=== PATIENT | male | born 1955 | race Caucasian/White ===

== ENCOUNTER → 2024-11-23 | Outpatient (CLI) | payer MEDICARE, OTHER, SELFPAY ==
--- NOTE | 2024-11-23 13:18 | MRI_ITS ---
EXAM: PELVIS W/WO CONTRAST 11/23/2024 CLINICAL HISTORY: BIOCHEMICAL RECURRENCE OF PROSTATE CA. Prostatectomy performed December 2023. TECHNIQUE: MRI of the pelvis was performed. Multiplanar and multisequence images were obtained intravenous gadolinium contrast. CONTRAST: 15 mL Clariscan intravenous. COMPARISON: None. FINDINGS: Prostatectomy with no MR evidence of local tumor recurrence. No metastatic pelvic or inguinal adenopathy. Small right and tiny left fat containing inguinal hernias. No marrow lesions identified. MRI/Pelvis W/WO Contrast IMPRESSION: Prostatectomy without MR evidence of recurrent prostate carcinoma. No metastat ic disease identified. Reading Location: [facility]
== END | disposition home or self-care (01) ==
LOC: OPMRI 13:01
PROVIDERS: PCP Family Medicine; Referring Provider Student in an Organized Health Care Education/Training Program; Visit Provider Student in an Organized Health Care Education/Training Program
DX: C61 Malignant neoplasm of prostate (principal); R97.21 Rising PSA following treatment for malignant neoplasm of prostate; Z19.1 Hormone sensitive malignancy status
CPT/HCPCS: 72197; A9575; A4216

== ENCOUNTER 2024-12-06 07:03 | Day surgery (SDC) | payer MEDICARE, OTHER, SELFPAY ==
--- NOTE | 2024-12-02 13:29 | PAT.ANESEVAL ---
Pre-Assessment Diagnosis/Proposed Procedure Planned Operative Procedure(s): (L) Insertion, Vascular Port Anesthesia History Anesthesia History - brush filler hand: Anesthesia History - brush filler hand Hx Hospitalization No 12/02/24 09:39 Any Problems With Anesthesia No 12/02/24 09:39 Cholinesterase deficiency No 12/02/24 09:39 You/Your Family Experience No 12/02/24 09:39 fever (hyperthermia) with Relationship Recent Exposure to Contagious Disease Does patient have nerve No 12/02/24 09:39 stimulator Patient instructed to have device shut off --Does patient have Pacemaker or ICD? When Was Last Pacemaker Check QUESTION #4 FULL TEXT: You/Your Family Experience fever (hyperthermia) with Anesthesia Last Oral Intake Last Oral intake: Last Oral Intake NPO since Meds taken in AM with sips of water? Meds patient instructed to take am of surgery PONV PONV - brush filler hand: PONV - brush filler hand Female No 12/02/24 09:39 HX of Motion Sickness No 12/02/24 09:39 HX of N/V After Surgery No 12/02/24 09:39 Non-Smoker Yes 12/02/24 09:39 Duration of Surgery greater Yes 12/02/24 09:39 than 60 minutes Number of Risk Factors 2 12/02/24 09:39 PONV Score Moderate Risk 12/02/24 09:39 Height & Weight Height & Weight: Anesthesia: Height & Weight Height 5 ft 9 in 12/01/24 08:55 Respiratory Assessment Respiratory Assessment - brush filler hand: Respiratory Tract Infection Hx - brush filler hand Hx Respiratory Tract Infection No 12/02/24 09:39 STOP Sleep Apnea STOP Sleep Apnea - brush filler hand: STOP Sleep Apnea - brush filler hand Hx Hypertension No 12/02/24 09:39 Hx Sleep Apnea No 12/02/24 09:39 CPAP BIPAP Do you snore loudly (louder Yes 12/02/24 09:39 than talking or can be heard Do you often feel tired/ No 12/02/24 09:39 fatigued/ sleepy during daytime? Has anyone observed you stop No 12/02/24 09:39 breathing during sleep? STOP Results Negative 12/02/24 09:39 QUESTION #5 FULL TEXT : Do you snore loudly (louder than talking or can be heard through closed doors)? 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 Specify any problems Hx of Preganancy in last 3 N/A 12/02/24 09:39 Months Nurse Filling Out Transfusion MGRIFFITH 12/02/24 09:39 & Questions: Date: 12/02/24 12/02/24 09:39 Time: 09:41 12/02/24 09:39 Patient unable to answer at this time (ie. confused, unrespo /Reproduction History /Reproductive History - brush filler hand: /Reproductive Hx- brush filler hand Hx Now Gestational Age (in weeks): EDC: Hx Hx Para Hx Section SAB PFSH Medical History (Updated 12/02/24 @ 09:49 by Kathy Cutler) History of Clostridium difficile infection Non-smoker History of echocardiogram History of stress test Cardiology follow-up encounter Encounter for education Metastasis to bone Melanoma Colon polyps Blepharitis CAD (coronary artery disease) BPH (benign prostatic hyperplasia) Prostate cancer Home Medications ?Medication ?Instructions ?Recorded ?Last Taken ?Type aspirin 81 mg tablet,delayed 81 mg PO QDAY 11/02/24 Unknown History release glucosamine sulfate 500 mg tablet 500 mg PO QDAY 11/02/24 Unknown History (Glucosamine) multivitamin 1 tab PO QAM 11/02/24 Unknown History dexamethasone 4 mg tablet 8 mg (2 x 4 mg) PO .COMPLEX #72 12/01/24 Unknown Rx tabs lidocaine-prilocaine 2.5 %-2.5 % 1 applic topical ONCE PRN port 12/01/24 Unknown Rx topical cream access 30 days #30 grams ondansetron 8 mg disintegrating 8 mg PO Q8H PRN nausea and 12/01/24 Unknown Rx tablet vomiting #30 tabs prochlorperazine maleate 10 mg 10 mg PO Q6H PRN nausea and 12/01/24 Unknown Rx tablet vomiting #30 tabs Allergy/AdvReac Type Severity Reaction Status Date / Time atorvastatin (From Lipitor) Allergy Unknown unknown Verified 12/02/24 09:34 Sulfa (Sulfonamide Allergy Unknown unknown Verified 12/02/24 09:34 Antibiotics) Family History Mother CVA (cerebral vascular accident) Father Cancer Surgical History (Updated 12/02/24 @ 09:39 by Kathy Cutler) History of wisdom tooth extraction History of basal cell carcinoma (BCC) excision History of melanoma excision History of prostatectomy Hx of colonoscopy Hx of cataract extraction Hx of prostate biopsy Hx of cardiac catheterization Social History Smoking Status: Never smoker alcohol intake: current alcohol intake frequency: a few times a month Alcohol type: wine substance use type: does not use what type of physical activity do you participate in: walking and yoga frequency: daily Audit: Pertinent Findings Pertinent Findings EKG Perinent findings: Sinus rhythm with no signs of ischemia. 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 September 2023. Consult pertinent findings: Cardiac assessment. 09/29/2023 [facility]. Left heart catheterization 06/22/2023 showed nonobstructive coronary artery disease. Preserved left ventricular function. Medical management only. Recommendation Anesthesia Recommendation Anesthesia recommendation: OPTIMIZED for anesthesia
[2024-12-06] VITALS (9 sets, daily range): BP systolic 92–146; BP diastolic 49–77; PULSE 49–66; RESP 14–16; TEMP 36.3–36.4; O2SAT 93–100; BMI 24.3
[2024-12-06] MEDS: Lactated Ringers 1,000 ML 15 ML IV (07:56)
--- NOTE | 2024-12-06 08:24 | PCM.PRE.AN2 ---
ASA Classification* ASA Classification ASA Classification: 2 Assessment & Plan Anesthesia* Anesthesia Assessment Anesthesia Assessment: Discussed sedation and/or anesthesia options, risks, benefits, and alternatives with patient/parents/legal guardian/POA. Questions invited. The patient/parents/legal guardian/POA seems to understand and agrees to proceed with anesthesia plan. Reviewed the physical assessment, medical history, allergy history and patient home medications list prior to surgery/procedure/anesthetic and documented any changes. Performed airway and anesthesia risk assessments. Anesthesia Type Anesthesia Type: MAC History Source History Obtained from:: Patient and Chart Anesthesia Focused Assessment* Temperature: 97.6 F Pulse Rate: 63 Blood Pressure: 146/77 Respiratory Rate: 16 Pulse Ox: 100 Oxygen Delivery Method: Room Air Airway Assessment Mouth opens: >3 cm Mallampati Score: I Teeth Condition: Caps/Crowns (Patient has a crown. 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 When Was Last Pacemaker Check QUESTION #4 FULL TEXT: You/Your Family Experience fever (hyperthermia) with Anesthesia Last Oral Intake Last Oral intake: Last Oral Intake NPO since 19:00 12/06/24 07:56 Meds taken in AM with sips of No 12/06/24 07:56 water? 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 Female No 12/02/24 09:39 HX of Motion Sickness No 12/02/24 09:39 HX of N/V After Surgery No 12/02/24 09:39 Non-Smoker Yes 12/02/24 09:39 Duration of Surgery greater Yes 12/02/24 09:39 than 60 minutes Number of Risk Factors 2 12/02/24 09:39 PONV Score Moderate Risk 12/02/24 09:39 Height & Weight Height & Weight: Anesthesia: Height & Weight Height 5 ft 9 in 12/06/24 07:56 Weight: 74.9 kg 12/06/24 07:56 Body Mass Index (BMI) 24.3 12/06/24 07:56 Respiratory Assessment Respiratory Assessment - waste collection driver: Respiratory Tract Infection Hx - waste collection driver Hx Respiratory Tract Infection No 12/02/24 09:39 Any additional information?: Yes Hx Respiratory Tract Infection: No History of Anesthesia Respiratory Infection details: Patient does have a slight cough especially at night. STOP Sleep Apnea STOP Sleep Apnea - waste collection driver: STOP Sleep Apnea - waste collection driver Hx Hypertension No 12/02/24 09:39 Hx Sleep Apnea No 12/02/24 09:39 CPAP BIPAP Do you snore loudly (louder Yes 12/02/24 09:39 than talking or can be heard Do you often feel tired/ No 12/02/24 09:39 fatigued/ sleepy during daytime? Has anyone observed you stop No 12/02/24 09:39 breathing during sleep? STOP Results Negative 12/02/24 09:39 QUESTION #5 FULL TEXT : Do you snore loudly (louder than talking or can be heard through closed doors)? 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 Specify any problems Hx of Preganancy in last 3 N/A 12/02/24 09:39 Months Nurse Filling Out Transfusion MGRIFFITH 12/02/24 09:39 & Questions: Date: 12/02/24 12/02/24 09:39 Time: 09:41 12/02/24 09:39 Patient unable to answer at this time (ie. 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: /Reproductive Hx- waste collection driver Hx Now Gestational Age (in weeks): EDC: Hx Hx Para Hx Section SAB Active Medications Active Medications: Current Medications Generic Name Dose Route Start Last Admin Trade Name Freq PRN Reason Stop Dose Admin Lactated Ringer's 1,000 mls @ 15 mls/hr 12/06/24 07:15 12/06/24 07:56 IV 15 mls/hr .Q48H ROB Administration PFSH Medical History History of Clostridium difficile infection Non-smoker History of echocardiogram History of stress test Cardiology follow-up encounter Encounter for education Metastasis to bone Melanoma Colon polyps Blepharitis CAD (coronary artery disease) BPH (benign prostatic hyperplasia) Prostate cancer Home Medications ?Medication ?Instructions ?Recorded ?Last Taken ?Type aspirin 81 mg tablet,delayed 81 mg PO QDAY 11/02/24 12/05/24 History release glucosamine sulfate 500 mg tablet 500 mg PO QDAY 11/02/24 Unknown History (Glucosamine) multivitamin 1 tab PO QAM 11/02/24 Unknown History dexamethasone 4 mg tablet 8 mg (2 x 4 mg) PO .COMPLEX #72 12/01/24 Unknown Rx tabs lidocaine-prilocaine 2.5 %-2.5 % 1 applic topical ONCE PRN port 12/01/24 Unknown Rx topical cream access 30 days #30 grams ondansetron 8 mg disintegrating 8 mg PO Q8H PRN nausea and 12/01/24 Unknown Rx tablet vomiting #30 tabs prochlorperazine maleate 10 mg 10 mg PO Q6H PRN nausea and 12/01/24 Unknown Rx tablet vomiting #30 tabs hypochlorous acid 0.01 %-sodium 1 applic topical DAILY PRN eye 12/06/24 Unknown History chloride topical spray (Avenova) irritation Allergy/AdvReac Type Severity Reaction Status Date / Time atorvastatin (From Lipitor) Allergy Unknown unknown Verified 12/06/24 07:51 Sulfa (Sulfonamide Allergy Unknown unknown Verified 12/06/24 07:51 Antibiotics) Family History Mother CVA (cerebral vascular accident) Father Cancer Surgical History History of wisdom tooth extraction History of basal cell carcinoma (BCC) excision History of melanoma excision History of prostatectomy Hx of colonoscopy Hx of cataract extraction Hx of prostate biopsy Hx of cardiac catheterization Social History Smoking Status: Never smoker alcohol intake: current alcohol intake frequency: a few times a month Alcohol type: wine substance use type: does not use what type of physical activity do you participate in: walking and yoga frequency: daily Review of Systems (Anesthesia) ROS Narrative System reviewed and no additional complaints, except as documented.
--- NOTE | 2024-12-06 08:43 | PCM.HP.STD ---
HPI - General General Date of Admission: 12/06/24 Date of Service: 12/06/24 Chief Complaint: Port placement HPI Narrative LISA SEO, is a 69 M who presents for elective venous port insertion for chemotherapy purposes [facility] Medical History History of Clostridium difficile infection Non-smoker History of echocardiogram History of stress test Cardiology follow-up encounter Encounter for education Metastasis to bone Melanoma Colon polyps Blepharitis CAD (coronary artery disease) BPH (benign prostatic hyperplasia) Prostate cancer Home Medications ?Medication ?Instructions ?Recorded ?Last Taken ?Type aspirin 81 mg tablet,delayed 81 mg PO QDAY 11/02/24 12/05/24 History release glucosamine sulfate 500 mg tablet 500 mg PO QDAY 11/02/24 Unknown History (Glucosamine) multivitamin 1 tab PO QAM 11/02/24 Unknown History dexamethasone 4 mg tablet 8 mg (2 x 4 mg) PO .COMPLEX #72 12/01/24 Unknown Rx tabs lidocaine-prilocaine 2.5 %-2.5 % 1 applic topical ONCE PRN port 12/01/24 Unknown Rx topical cream access 30 days #30 grams ondansetron 8 mg disintegrating 8 mg PO Q8H PRN nausea and 12/01/24 Unknown Rx tablet vomiting #30 tabs prochlorperazine maleate 10 mg 10 mg PO Q6H PRN nausea and 12/01/24 Unknown Rx tablet vomiting #30 tabs hypochlorous acid 0.01 %-sodium 1 applic topical DAILY PRN eye 12/06/24 Unknown History chloride topical spray (Avenova) irritation Allergy/AdvReac Type Severity Reaction Status Date / Time atorvastatin (From Lipitor) Allergy Unknown unknown Verified 12/06/24 07:51 Sulfa (Sulfonamide Allergy Unknown unknown Verified 12/06/24 07:51 Antibiotics) Family History Mother CVA (cerebral vascular accident) Father Cancer Surgical History History of wisdom tooth extraction History of basal cell carcinoma (BCC) excision History of melanoma excision History of prostatectomy Hx of colonoscopy Hx of cataract extraction Hx of prostate biopsy Hx of cardiac catheterization Social History Smoking Status: Never smoker alcohol intake: current alcohol intake frequency: a few times a month Alcohol type: wine substance use type: does not use what type of physical activity do you participate in: walking and yoga frequency: daily Vital Signs Vital Signs Vital Signs: 12/06/24 07:56 12/06/24 07:56 12/06/24 08:31 Temperature 97.6 F L 97.6 F L Temperature Source Temporal Pulse Rate 63 63 Respiratory Rate 16 16 Respiratory Pattern Normal Blood Pressure 146/77 H 146/77 H Blood Pressure Mean 100 Blood Pressure Source Monitor Blood Pressure Position Sitting Blood Pressure Location Left Arm Pulse Ox 100 100 Oxygen Delivery Method Room Air Room Air Weight Weight: 165 lb 2.02 oz Body Mass Index (BMI) 24.3 Physical Exam Const alert, oriented x3 and no apparent distress Assessment & Plan Assessment/Plan (1) Encounter for insertion of venous access port: PLAN: Plan The patient is a 69-year-old male who presents today for port placement. He is starting chemotherapy in early December. We again reviewed the details of the planned procedure including risks benefits and alternatives and he wishes to proceed. This began momentarily Charges/Coding Visit Charges Inpatient E&M: 37526 Init Hosp L2
[2024-12-06] MEDS: Cefazolin 2 GM in 0.9% Normal Saline (100mL Bag) 100 ML IV (09:02)
[2024-12-06] MEDS: Bupivacaine Mpf 0.5% 30 ML VIAL (09:20)
[2024-12-06] MEDS: Lidocaine 1%/Epi 1:200 (30ml) 30 ML AMPUL (09:20)
--- NOTE | 2024-12-06 10:01 | EX.PCM.DISCH ---
Discharge Instructions Diet Discharge Diet: Light diet - advance as tolerated Activity Discharge Activity: May Shower May shower in (days): 1 Dressing / Incision Call your doctor if your incision/area has: Continuous Slow Oozing, Sudden Increased Bleeding, Increased Pain/ Swelling, Increased Redness, Foul Smelling Discharge and Swelling at the incision site Call your doctor if you observe: Fever of 101 or Higher Remove Dressing in: 2 days Cleanse incision/area with: Soap & Water Follow Up Care Please Follow Up With: Irineo Corrigan MD When: as needed Test Results: Test results from this visit will be discussed in further detail at your follow-up appointment, if applicable. Discharge Plan Admission Primary Reason for Your Visit: Port placement Attending Provider: Irineo Corrigan Primary Care Provider: Tanmay Wynne Instructions Print Language: French Discharge Orders/Prescriptions Prescriptions: New oxycodone-acetaminophen [Percocet] 5-325 mg tablet 1 tab PO Q8H PRN (Reason: pain) 3 Days Qty: 7 0RF Continued aspirin 81 mg tablet,delayed release (DR/EC) 81 mg PO QDAY Patient Comments: INSTRUCTED BY JANA TO CONTINUE TAKING PREOP glucosamine sulfate [Glucosamine] 500 mg tablet 500 mg PO QDAY Rx Instructions: administer with a meal multivitamin Tablet 1 tab PO QAM lidocaine-prilocaine 2.5-2.5 % cream 1 applic topical ONCE PRN (Reason: port access) 30 Days Qty: 30 2RF dexamethasone 4 mg tablet 8 mg PO .COMPLEX Qty: 72 0RF Rx Instructions: 8 mg orally BID ONLY the day before, the day of, and the day after ondansetron 8 mg tablet,disintegrating 8 mg PO Q8H PRN (Reason: nausea and vomiting) Qty: 30 2RF prochlorperazine maleate 10 mg tablet 10 mg PO Q6H PRN (Reason: nausea and vomiting) Qty: 30 2RF Avenova 0.01 % spray,non-aerosol 1 applic topical DAILY PRN (Reason: eye irritation) Other Ambulatory Orders: CXR for Line Placement (Routine) Facility: [facility] - Location: [facility] Ordered By: Dr. Irineo Corrigan Referrals / Follow Up: Tanmay Wynne MD [Primary Care Provider] - Disposition Disposition (needs filled in before D/C Order can be placed): Home, Self Care
--- NOTE | 2024-12-06 10:03 | PCM.POST.ANE ---
Anesthesia: Postop Eval I Current Vital Signs Temperature: 97.4 F Pulse Rate: 66 Blood Pressure: 92/49 Respiratory Rate: 16 Pulse Ox: 96 Oxygen Delivery Method: Room Air Assessment Airway patent: Yes Spontaneous unlabored respirations: Yes Mental status: Awake and Calm nausea: No Vomiting: No Anesthesia Complication: No Fluid Hydration Crystalloid volume administer (ml): 400 Total IV fluid infused: 400 Progress Note Anesthesia document: Postop Eval 1 completed: Yes
--- NOTE | 2024-12-06 10:06 | RAD_ITS ---
PROCEDURE: CXR FOR LINE PLACEMENT 12/06/2024 REASON FOR EXAM: NEW PORT TECHNIQUE: Portable views of the chest COMPARISON: None FINDINGS: A left-sided port a catheter is seen with the tip at the junction of the superior vena cava and right atrium. RAD/CXR for Line Placement IMPRESSION: The tip of the left port a catheter is seen at the junction of the superior jennifer a cava and right atrium. Reading Location: [facility]
--- NOTE | 2024-12-06 10:08 | PCM.OPRPT ---
Problems Associated Problem List Diagnoses (1) Encounter for insertion of venous access port: Procedures Cardiovascular CF Procedures [id number]: [id number] Insert tunneled cv cath Operative Report (Standard) Operative Information Date of Procedure: 12/06/24 Pre-Operative Diagnosis: Metastatic prostate cancer Post-Operative Diagnosis: Same Surgery/Procedure Performed: Left subclavian Mediport placement with C arm nurse quality: No Type of Anesthesia: MAC/Supplemental/Local RN Documented Start/Stop Times: Operation Date: 12/06/24 08:50 Case Time Into Pre-Op 12/06/24 07:09 Out of Pre-Op 12/06/24 08:56 Anesthesia Start 12/06/24 09:02 Into Room 12/06/24 09:02 Procedure Start 12/06/24 09:21 Procedure End 12/06/24 09:50 Anesthesia End 12/06/24 09:56 Out of Room 12/06/24 09:56 Into Recovery 12/06/24 10:00 Procedure Start Time: 09:21 Procedure Stop Time: 09:50 Select all DRAINS/GRAFTS/IMPLANTS that apply: Implanted device Implanted device details: PowerPort Special Medications: 2 g of Ancef IV preop Estimated Blood Loss: 5 mL Specimen collected: No Description of surgery: The patient is a 69-year-old male who was recently seen through the office in need of a Mediport placement for initiation of chemotherapy. We discussed the details of the planned procedure as well as risk benefits and alternatives. He wished to proceed. He was brought to the operating today following informed consent. Preoperative antibiotics were given and a timeout was performed. He was placed supine on the operative table with arms at his sides. An axillary roll was placed between his shoulder blades. The left upper chest and neck regions were prepped and draped in the usual sterile manner. Local anesthetic was injected. Using the supplied needle and syringe, the left subclavian vein was accessed on the first pass. The blood return was a dark red, nonpulsatile, venous appearing blood return. The guidewire was then threaded through the aperture and the needle. The guidewire was then secured to the drapes using a curved hemostat. C-arm was brought into confirm appropriate positioning of the guidewire. This was the case. Next a small subcutaneous pocket was created just below the insertion of the guidewire. Local anesthetic was infiltrated into the region. #15 blade was then used to make a skin incision. Bovie electrocautery was then used to dissect down through subcutaneous tissues. Once at the level of the pectoralis of fascia, subcutaneous pocket was created. Another small incision was made using the #15 blade at the entry point of the guidewire. The tubing was then threaded into the larger incision and up and out through the smaller incision. This was then cut to about 21 cm. The tubing was then attached to the hub of the port. The hub was then affixed to the underlying pectoralis fascia using Prolene suture x 2. This laid nicely. The dilator and tear-away sheath were then threaded over the guidewire. C-arm was used to confirm adequate placement. The guidewire and dilator were then removed, thus leaving the sheath in place. The free end of the Mediport tubing was then threaded down the sheath. The sheath was then extracted. The port was then tested using injectable saline. It imer and flushed very easily. With good blood return. C arm was then brought into confirm positioning of the tubing and to ensure no acute kinks or bands were noted in the tubing. There were none. The port was then flushed with heparin. 3-0 Vicryl was then used to close the subdermal layer. 4-0 Vicryl was used to close the skin. Hemostasis was excellent. Skin glue was then applied as dressing. On top of the glue, there was a 2 x 2 and a large OpSite placed. He was awakened from anesthesia and taken to recovery in good condition. A chest x-ray will be performed in recovery. The patient tolerated the procedure very well. Surgical Findings: See procedure note Complications Complications: No Admit VTE Documentation VTE Present on Admission: No VTE Mechan Device Prophylaxis: SCD's VTE Pharm Prophylaxis ordered?: No Reason prophylaxis not ordered: Treatment Not Indicated
--- NOTE | 2024-12-06 20:40 | POSTOPAN2_ITS ---
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 Spontaneous unlabored Yes 12/06/24 10:04 ANTIQUE CLOCKS REPAIRER.[email or web address] respirations Mental status Awake,Calm 12/06/24 10:04 ANTIQUE CLOCKS REPAIRER.GDOTT nausea No 12/06/24 10:04 ANTIQUE CLOCKS REPAIRER.GDOTT Vomiting No 12/06/24 10:04 ANTIQUE CLOCKS REPAIRER.GDOTT Anesthesia Postop Eval I: Fluid Summary Crystalloid volume administer 400 12/06/24 10:04 ANTIQUE CLOCKS REPAIRER.GDOTT (ml) Colloids volume administered ( ml) Blood Product volume administered (ml) Total IV fluid infused 400 12/06/24 10:04 ANTIQUE CLOCKS REPAIRER.GDOTT Anesthesia Postop Eval I: Summary Notes Anesthesia Complication No 12/06/24 10:04 ANTIQUE CLOCKS REPAIRER.GDOTT Anesthesia Complication Comment: Post-operative progress note Anesthesia: Postop Eval II Evaluation Mental status: Awake and Calm Pain Level: 1 nausea: No Vomiting: No Complications Anesthesia Complication: No
--- NOTE | 2024-12-06 20:40 | PCM.POSTANE2 ---
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 Spontaneous unlabored Yes 12/06/24 10:04 CHRONIC DISEASE EPIDEMIOLOGIST.GDOTT respirations Mental status Awake,Calm 12/06/24 10:04 CHRONIC DISEASE EPIDEMIOLOGIST.GDOTT nausea No 12/06/24 10:04 CHRONIC DISEASE EPIDEMIOLOGIST.GDOTT Vomiting No 12/06/24 10:04 CHRONIC DISEASE EPIDEMIOLOGIST.GDOTT Anesthesia Postop Eval I: Fluid Summary Crystalloid volume administer 400 12/06/24 10:04 CHRONIC DISEASE EPIDEMIOLOGIST.GDOTT (ml) Colloids volume administered ( ml) Blood Product volume administered (ml) Total IV fluid infused 400 12/06/24 10:04 CHRONIC DISEASE EPIDEMIOLOGIST.GDOTT Anesthesia Postop Eval I: Summary Notes Anesthesia Complication No 12/06/24 10:04 CHRONIC DISEASE EPIDEMIOLOGIST.GDOTT Anesthesia Complication Comment: Post-operative progress note Anesthesia: Postop Eval II Evaluation Mental status: Awake and Calm Pain Level: 1 nausea: No Vomiting: No Complications Anesthesia Complication: No
== END 2024-12-06 11:09 | disposition home or self-care (01) ==
LOC: SDC 07:04 → AC 07:05
PROVIDERS: PCP Family Medicine; Referring Provider Surgery; Visit Provider Surgery
PROC: (CPT 36561; principal; 2024-12-06 08:35)
DX: Z45.2 Encounter for adjustment and management of vascular access device (principal); C61 Malignant neoplasm of prostate; I25.10 Atherosclerotic heart disease of native coronary artery without angina pectoris; Z79.82 Long term (current) use of aspirin
CPT/HCPCS: 36561; 00532; 71045; 77001; C1788; J2405

== ENCOUNTER → 2025-05-03 | Outpatient (CLI) | payer MEDICARE, OTHER, SELFPAY ==
--- NOTE | 2025-05-03 07:52 | NM_ITS ---
PROCEDURE: BONE SCAN WHOLE BODY 05/03/2025 REASON FOR EXAM: RESTAGING METS PROSTATE CA COMPARE TO PET 12/04 TECHNIQUE: Procedure Code: NMBO Modality: NM Procedure: BONE SCAN WHOLE BODY Whole-body bone scan with anterior and posterior views. Imaging at 3.5 hours. RADIOPHARMACEUTICAL: 26 mCi Technetium-99m MDP IV COMPARISON: PET-CT of 11/22/2024. FINDINGS: Again seen is mild increased uptake anterior right 4th rib and also probably stable increased uptake in the left iliac wing, similar to the comparison PET-CT of 11/22/2024. In the posterolateral right 9th rib, a focus of increased uptake is not significantly changed since the prior PET-CT, as well. No new or worsened osseous focus of abnormal activity is seen. Degenerative changes are seen about knees. Asymmetric left acromioclavicular joint degenerative changes are seen. Bilateral 1st carpal-metacarpal joint degenerative changes are also seen, right worse than left. Mild degenerative changes are seen throughout the thoracic and lumbar spine. NM/Bone Scan Whole Body IMPRESSION: Stable left iliac wing right 4th 9th rib foci of increased uptake seen, without new or worsened process seen. Degenerative changes as noted. Reading Location: [id number]
== END | disposition home or self-care (01) ==
LOC: NM 07:49
PROVIDERS: PCP Family Medicine; Referring Provider Internal Medicine Hematology & Oncology; Visit Provider Internal Medicine Hematology & Oncology
DX: C61 Malignant neoplasm of prostate (principal); C79.51 Secondary malignant neoplasm of bone
CPT/HCPCS: 78306; A9503